=== PATIENT | male | born 1930 | race Caucasian/White ===

== ENCOUNTER → 2018-03-15 | Outpatient (CLI) | payer MEDICARE, BC ==
[~2018-03-15] MED LIST: ALLERGY10 M1; AMITRIPTYLINE; AMITRIPTYLINE H10 M1 PO; AMLODIPINE; ANTIVERT12.5 MG PO; ATENOLOL; ATENOLOL 25 MG25 M1 PO; AVELOX 400 MG400 M1 PO; BAYER CHEWABLE81 MG PO; BENADRYL25 MG PO; CLOTRIMAZOLE 1%15 G1 TOP; DETROL LA4 MG PO; DIABETA; FLEXERIL PO; FLOMAX0.4 MG PO; GLIPIZIDE 10 MG10 MG PO; GLUCOTROL10 MG PO; HYDRALAZINE 2525 MG PO; LEVAQUIN 500 M500 M2 PO; LISINOPRIL40 MG PO; NITROFURANTOIN100 MG PO; NORCO 7.5-3251 EACH PO; NORVASC10 MG PO; OMEPRAZOLE; OMEPRAZOLE 20 M20 M1 PO; OMEPRAZOLE20 M2 PO; PRINIVIL; SIMVASTATIN20 MG PO; TAMSULOSIN HCL0.4 MG PO; TENORMIN; TUMS CHEWA500 MG/11 PO; TYLENOL325 MG PO
[2018-03-15 11:32] LABS: ALBUMIN 3.2 g/dL (3.4-5.0); ALKALINE PHOSPHATASE 64 U/L (46-116); CHOLESTEROL 139 mg/dL (<200); DIRECT BILIRUBIN 0.2 mg/dL (<0.1-0.3); HDL CHOLESTEROL 33 mg/dL (>40); LDL CHOLESTEROL 45 mg/dL (<100); SERUM ASSESSMENT Clear; SGOT 28 U/L (15-37); SGPT 33 U/L (30-65); TC:HDL 4.2 Ratio (Not establshd); TOTAL BILIRUBIN 0.7 mg/dL (<0.1-1.0); TOTAL PROTEIN 7.1 g/dL (6.4-8.2); TRIGLYCERIDE 306 mg/dL (<150); VLDL 61 mg/dL (<40)
== END ==
LOC: M.LAB 10:51
PROVIDERS: Nurse Practitioner
DX: E78.00 Pure hypercholesterolemia, unspecified (principal); I10 Essential (primary) hypertension; I34.0 Nonrheumatic mitral (valve) insufficiency